=== PATIENT | female | born 1960 | race Caucasian/White ===

== ENCOUNTER 2023-04-15 13:14 | Emergency (ER) | payer OTHER ==
[~2023-04-15] VITALS: Ht 167.6 cm; Wt 73.9 kg
[2023-04-15] MEDS ORDERED: DIPH-1062 PO (13:28)
[2023-04-15] MEDS ORDERED: TRAZ-182 PO (13:28)
[2023-04-15] MEDS ORDERED: ALBU8.5H8 IH (13:28)
[2023-04-15] MEDS ORDERED: ATOR40TA PO (13:28)
[2023-04-15] MEDS ORDERED: CHOL100043 PO (13:28)
[2023-04-15] MEDS ORDERED: SERT50TA12 PO (13:28)
[2023-04-15] MEDS ORDERED: LORA10TA7 PO (13:28)
[2023-04-15] MEDS ORDERED: DIVA-76 PO (13:28)
[2023-04-15] MEDS ORDERED: LISI40TA13 PO (13:28)
[2023-04-15] MEDS ORDERED: AMLO-213 PO (13:28)
[2023-04-15] MEDS ORDERED: CALC500T13 PO (13:28)
[2023-04-15] MEDS ORDERED: PANT40TA2 PO (13:28)
[2023-04-15] MEDS ORDERED: DOCU-141 PO (13:28)
[2023-04-15] MEDS ORDERED: ASPI-1420 PO (13:28)
[2023-04-15] MEDS ORDERED: APIX5TAB PO (13:28)
[2023-04-15] MEDS ORDERED: OLAN10TA3 PO (13:28)
[2023-04-15] MEDS ORDERED: TIZA4TAB5 PO (13:29)
[2023-04-15] MEDS ORDERED: TRAM50TA2 PO (13:29)
[2023-04-15 13:34] LABS: BASOPHILS # (AUTO) 0.1 K/uL (0.0-0.2); BASOPHILS % (AUTO) 0.6 % (0.0-2.0); EOSINOPHILS # (AUTO) 0.5 K/uL (0.0-0.7); HEMATOCRIT 38 % (33-45); HEMOGLOBIN 12.4 g/dL (11.5-14.8); LYMPHOCYTES # (AUTO) 3.1 K/uL (0.8-4.8); LYMPHOCYTES % (AUTO) 31.1 % (20.0-44.0); MEAN CORPUSCULAR HEMOGLOBIN 30 PG (26.0-33.0); MEAN CORPUSCULAR HGB CONC 33 g/dl (31.0-36.0); MEAN CORPUSCULAR VOLUME 91 fL (82-100); MONOCYTES # (AUTO) 0.7 K/uL (0.1-1.30); MONOCYTES % (AUTO) 6.7 % (2.0-12.0); NEUTROPHILS # (AUTO) 5.7 K/uL (1.8-8.9); NEUTROPHILS % (AUTO) 56.6 % (43.0-81.0); PLATELET COUNT (AUTO) 315 K/uL (150-450); RED BLOOD CELL COUNT(AUTO) 4.14 MIL/uL (4.0-5.2); RED CELL DISTRIBUTION WIDTH 13.1 % (11.5-15.0); WHITE BLOOD COUNT (AUTO) 10.1 K/uL (4.3-11.0)
[2023-04-15] MEDS ORDERED: IOHEXOL-350 100 ML VIAL IV ONE (13:35)
[2023-04-15] MEDS ORDERED: IV NS 0.9% 250 ML IV ONE (13:35)
[2023-04-15 13:41] LABS: CALCIUM, SERUM 9.4 mg/dL (8.5-10.1); CARBON DIOXIDE 31 mmol/L (21-32); CHLORIDE 106 mmol/L (98-107); CREATININE 0.7 mg/dL (0.6-1.3); GLUCOSE 105 mg/dL (74-106); POTASSIUM 4.2 mmol/L (3.5-5.1); SODIUM SERUM 141 mmol/L (136-145); UREA NITROGEN, BLOOD 18 mg/dL (7-18)
[2023-04-15 13:43] LABS: INR 1.05 (0.91-1.10); PARTIAL THROMBOPLASTIN TIME 28.1 SEC (24.3-34.3)
[2023-04-15 13:47] LABS: ALANINE AMINOTRANSFERASE 13 U/L (12-78); ALBUMIN 3.1 g/dL (3.4-5.0); ALKALINE PHOSPHATASE 84 U/L (46-116); ASPARTATE AMINOTRANSFERASE 14 U/L (15-37); BILIRUBIN,DIRECT 0.1 mg/dL (0.0-0.2); BILIRUBIN,TOTAL 0.3 mg/dL (0.2-1.0); TOTAL PROTEIN, SERUM 7.3 g/dL (6.4-8.2)
[2023-04-15 15:11] LABS: APPEARANCE,URINE CLEAR (CLEAR); BILIRUBIN,URINE NEGATIVE (NEGATIVE); BLOOD, URINE 1+ Ery/uL (NEGATIVE); COLOR,URINE ORANGE (YELLOW); KETONES,URINE NEGATIVE (NEGATIVE); LEUKOCYTE ESTERASE ,URINE NEGATIVE (NEGATIVE); NITRITE, URINE NEGATIVE (NEGATIVE); PROTEIN,URINE NEGATIVE (NEGATIVE); UGLUCOSE NEGATIVE (NEGATIVE); UROBILINOGEN,URINE 0.2 EU/dL (0.2)
[2023-04-15] MEDS ORDERED: ASPIRIN 300 MG/SUPP.RECT RC ONE ×2 (16:00→16:48)
[2023-04-15 16:17] LABS: ADD URINE CULTURE NO; BACTERIA,URINE Few /HPF (None Seen); RBC,URINE 0-2 /HPF (0-2); SQUAMOUS EPITHELIAL CELL,UR Few /HPF (None Seen); WBC,URINE 0-2 /HPF (0-3)
[2023-04-15 20:29] VITALS: BP 164/70; TEMP 98.2; O2SAT 95
== END 2023-04-15 20:30 | disposition short-term general hospital (02) ==
LOC: ER 13:15
DX: R47.01 Aphasia (principal); R53.1 Weakness; I10 Essential (primary) hypertension; F03.90 Unspecified dementia, unspecified severity, without behavioral disturbance, psychotic disturbance, mood disturbance, and anxiety; F20.9 Schizophrenia, unspecified; Z79.899 Other long term (current) drug therapy; Z20.822 Contact with and (suspected) exposure to COVID-19
CPT/HCPCS: 99291; 70498; 71045; 87426; 51701; 70496; 85025; 80048; 80076; 81001; 36415; 84484 ×2; 85730; 87081; 82962; 70450; 93005; J7050; Q9967; C9803

== ENCOUNTER 2024-10-21 07:35 | Inpatient (IN) | payer MEDICARE, OTHER ==
[~2024-10-21] VITALS: Ht 167.6 cm; Wt 83.9 kg
[2024-10-21] VITALS (43 sets, daily range): BP systolic 67–156; BP diastolic 45–93; TEMP 98.3; O2SAT 93–100
[~2024-10-21 07:35] MED LIST: ALBU8.5H8 IH; AMLO-213 PO; APIX5TAB PO; ASPI-1420 PO; ATOR40TA PO; CALC500T13 PO; CHOL100043 PO; DIPH-1062 PO; DIVA-76 PO; DOCU-141 PO; LISI40TA13 PO; LORA10TA7 PO; OLAN10TA3 PO; PANT40TA2 PO; SERT50TA12 PO; TIZA4TAB5 PO; TRAM50TA2 PO; TRAZ-182 PO
[2024-10-21] MEDS ORDERED: ACETAMINOPHEN 650 MG/SUPP.RECT RC ONE ×2 (07:49)
[2024-10-21 07:57] LABS: BASOPHILS # (AUTO) 0.1 K/uL (0.0-0.2); BASOPHILS % (AUTO) 0.6 % (0.0-2.0); EOSINOPHILS # (AUTO) 0.1 K/uL (0.0-0.7); EOSINOPHILS % (AUTO) 0.7 % (0.0-6.0); HEMATOCRIT 39 % (33-45); HEMOGLOBIN 12.6 g/dL (11.5-14.8); LYMPHOCYTES # (AUTO) 3.6 K/uL (0.8-4.8); LYMPHOCYTES % (AUTO) 29.4 % (20.0-44.0); MEAN CORPUSCULAR HEMOGLOBIN 29 PG (26.0-33.0); MEAN CORPUSCULAR HGB CONC 32 g/dl (31.0-36.0); MEAN CORPUSCULAR VOLUME 90 fL (82-100); MONOCYTES # (AUTO) 0.3 K/uL (0.1-1.30); MONOCYTES % (AUTO) 2.1 % (2.0-12.0); NEUTROPHILS # (AUTO) 8.3 K/uL (1.8-8.9); NEUTROPHILS % (AUTO) 67.2 % (43.0-81.0); PLATELET COUNT (AUTO) 302 K/uL (150-450); RED BLOOD CELL COUNT(AUTO) 4.34 MIL/uL (4.0-5.2); WHITE BLOOD COUNT (AUTO) 12.3 K/uL (4.3-11.0)
[2024-10-21 08:04] LABS: CALCIUM, SERUM 8.8 mg/dL (8.5-10.1); CARBON DIOXIDE 26 mmol/L (21-32); CHLORIDE 108 mmol/L (98-107); CREATININE 1.3 mg/dL (0.6-1.3); GLUCOSE 257 mg/dL (74-106); POTASSIUM 4.7 mmol/L (3.5-5.1); SODIUM SERUM 141 mmol/L (136-145); UREA NITROGEN, BLOOD 25 mg/dL (7-18)
[2024-10-21 08:12] LABS: LACTIC ACID 1.9 mmol/L (0.4-2.0)
[2024-10-21 08:21] LABS: ALANINE AMINOTRANSFERASE 11 U/L (12-78); ALBUMIN 2.9 g/dL (3.4-5.0); ALKALINE PHOSPHATASE 57 U/L (46-116); ASPARTATE AMINOTRANSFERASE 20 U/L (15-37); BILIRUBIN,DIRECT 0.1 mg/dL (0.0-0.2); BILIRUBIN,TOTAL 0.3 mg/dL (0.2-1.0)
[2024-10-21] MEDS: ACETAMINOPHEN 650 MG/SUPP.RECT RC ONE ×2 (08:21→08:38)
[2024-10-21] MEDS: NOREPINEPHRINE 8 MG in IV D5W 242 ML IV PRN ×2 (08:30→13:57)
[2024-10-21 08:33] LABS: INR 1.13 (0.91-1.10); PARTIAL THROMBOPLASTIN TIME 27.1 SEC (24.3-34.3); PROTHROMBIN TIME 11.9 SECS (9.2-11.1)
[2024-10-21] MEDS: IV NS 0.9% 1,000 ML BAG IV ONE (08:42)
[2024-10-21] MEDS: AZITHROMYCIN 500 MG in IV D5W 250 ML IV ONE (08:43)
[2024-10-21] MEDS: VANCOMYCIN 1 GM in IV D5W 250 ML IV ONE (08:43)
[2024-10-21] MEDS: PIPERACILLIN /TAZOBACTAM 3.375 G in IV D5W 50 ML IV ONE (08:44)
[2024-10-21] MEDS ORDERED: [UNRECOGNIZED DRUG - OTHER] PO (09:10)
[2024-10-21] MEDS ORDERED: MAGN400O6 PO (09:10)
[2024-10-21] MEDS ORDERED: FLUT1BLS IH (09:10)
[2024-10-21] MEDS ORDERED: SENN-261 PO (09:10)
[2024-10-21] MEDS ORDERED: ACET-868 PO (09:10)
[2024-10-21] MEDS ORDERED: IPRA3AMP22 IH ×2 (09:10)
[2024-10-21] MEDS ORDERED: LOPE2TAB25 PO (09:10)
[2024-10-21] MEDS ORDERED: BISA10SU11 RC (09:10)
[2024-10-21] MEDS ORDERED: CALC-494 PO (09:10)
[2024-10-21] MEDS ORDERED: ONDA4TAB5 PO (09:10)
[2024-10-21] MEDS ORDERED: AMLO5TAB4 PO (09:10)
[2024-10-21 09:12] LABS: APPEARANCE,URINE CLEAR (CLEAR); BILIRUBIN,URINE NEGATIVE (NEGATIVE); BLOOD, URINE 2+ Ery/uL (NEGATIVE); COLOR,URINE YELLOW (YELLOW); KETONES,URINE NEGATIVE (NEGATIVE); LEUKOCYTE ESTERASE ,URINE NEGATIVE (NEGATIVE); NITRITE, URINE NEGATIVE (NEGATIVE); PROTEIN,URINE 2+ mg/dl (NEGATIVE); UGLUCOSE NEGATIVE (NEGATIVE); UROBILINOGEN,URINE 0.2 EU/dL (0.2)
[2024-10-21 09:21] LABS: ABG BASE EXCESS -1.6 mmol/L (-2.0-3.0); ABG OXYGEN SATURATION 98.9 % (94.0-98.0); ABG PCO2 39.5 mmHg (32.0-45.0); ABG PH 7.387 (7.350-7.450); ABG PO2 279.9 mmHg (83.0-108.0); COHb 0.3 % (0.5-1.5); MetHb 0.5 % (0.0-1.5); O2Hb 98.1 % (94.0-97.0); SITE, ABG RIGHT RADIAL
[2024-10-21] MEDS ORDERED: PROPOFOL 100 ML ONE (09:36)
[2024-10-21 09:54] LABS: ADD URINE CULTURE NO; BACTERIA,URINE 1+ /HPF (None Seen); WBC,URINE 0-2 /HPF (0-3)
[2024-10-21 10:11] LABS: ABG BASE EXCESS -7.2 mmol/L (-2.0-3.0); ABG OXYGEN SATURATION 98.7 % (94.0-98.0); ABG PCO2 24.2 mmHg (32.0-45.0); ABG PH 7.428 (7.350-7.450); ABG PO2 228.3 mmHg (83.0-108.0); ABG TOTAL HEMOGLOBIN 11.3 G/dL (12.0-16.0); COHb 0.3 % (0.5-1.5); MetHb 0.3 % (0.0-1.5); O2Hb 98.1 % (94.0-97.0); PEEP,BG 5 cm H2O; SITE, ABG RIGHT RADIAL; VT, ABG 450 mL
[2024-10-21] MEDS: PROPOFOL 100 ML IV PRN ×2 (10:14→14:48)
[2024-10-21] MEDS: ASPIRIN 300 MG/SUPP.RECT RC ONE (10:30)
[2024-10-21] MEDS ORDERED: ASPIRIN 300 MG/SUPP.RECT RC ONE (11:26)
[2024-10-21] MEDS ORDERED: Z GUARD REMEDY 4 OZ OINT TP PRN (12:00)
[2024-10-21] MEDS ORDERED: ONDANSETRON HCL/PF 4 MG/2 ML VIAL IVP PRN (12:00)
[2024-10-21] MEDS ORDERED: MAG HYDROX/AL HYDROX/SIMETH 30 ML UDC PO PRN (12:00)
[2024-10-21] MEDS: ENOXAPARIN SODIUM 40 MG/0.4 ML DISP.SYRIN SQ SCH (14:45)
[2024-10-21] MEDS: PIPERACILLIN /TAZOBACTAM 3.375 G in IV D5W 50 ML IV SCH (15:26)
[2024-10-21] MEDS ORDERED: ETOMIDATE 2 MG/ML VIAL IV ONE (17:44)
[2024-10-21] MEDS: IV NS 0.9% 1,000 ML IV PRN (19:43)
[2024-10-21] MEDS: VANCOMYCIN 750 MG in IV D5W 250 ML IV SCH (20:37)
[2024-10-22] VITALS (48 sets, daily range): BP systolic 75–141; BP diastolic 45–95; TEMP 97–99; O2SAT 93–100
[2024-10-22 05:11] LABS: BASOPHILS % (AUTO) 0.3 % (0.0-2.0); EOSINOPHILS # (AUTO) 0.1 K/uL (0.0-0.7); EOSINOPHILS % (AUTO) 0.9 % (0.0-6.0); HEMATOCRIT 31 % (33-45); HEMOGLOBIN 10.2 g/dL (11.5-14.8); LYMPHOCYTES # (AUTO) 3.3 K/uL (0.8-4.8); LYMPHOCYTES % (AUTO) 34.6 % (20.0-44.0); MEAN CORPUSCULAR HEMOGLOBIN 30 PG (26.0-33.0); MEAN CORPUSCULAR HGB CONC 33 g/dl (31.0-36.0); MEAN CORPUSCULAR VOLUME 90 fL (82-100); MONOCYTES # (AUTO) 1.2 K/uL (0.1-1.30); MONOCYTES % (AUTO) 12.4 % (2.0-12.0); NEUTROPHILS # (AUTO) 4.9 K/uL (1.8-8.9); NEUTROPHILS % (AUTO) 51.8 % (43.0-81.0); PLATELET COUNT (AUTO) 155 K/uL (150-450); RED BLOOD CELL COUNT(AUTO) 3.46 MIL/uL (4.0-5.2); RED CELL DISTRIBUTION WIDTH 15.2 % (11.5-15.0); WHITE BLOOD COUNT (AUTO) 9.5 K/uL (4.3-11.0)
[2024-10-22 05:33] LABS: CALCIUM, SERUM 8.1 mg/dL (8.5-10.1); CREATININE 0.7 mg/dL (0.6-1.3); MAGNESIUM 1.6 mg/dL (1.8-2.4); PHOSPHORUS 2.4 mg/dL (2.5-4.9)
[2024-10-22 05:36] LABS: POTASSIUM 2.8 mmol/L (3.5-5.1)
[2024-10-22] MEDS ORDERED: POTASSIUM CHLORIDE 10 MEQ/50 ML PREMIXED IVPB FOR PERIPHERAL LINE IV ONE (07:30)
[2024-10-22] MEDS: PANTOPRAZOLE 40 MG VIAL IV SCH (08:59)
[2024-10-22] MEDS: POTASSIUM CL. PREMIX PERIPHER. 50 ML IV SCH ×2 (09:00→13:27)
[2024-10-22] MEDS ORDERED: Magnesium 1GM/D5W 100ML PREMIX 100 ML IV SCH (11:30)
[2024-10-22] MEDS: IV D5/0.45 NACL 1,000 ML IV SCH (12:02)
[2024-10-22] MEDS: Magnesium 1GM/D5W 100ML PREMIX 100 ML IV SCH (12:21)
[2024-10-22] MEDS: PIPERACILLIN /TAZOBACTAM 3.375 G in IV D5W 100 ML IV SCH (16:25)
[2024-10-22] MEDS: POTASSIUM PHOSPHATE MM 15 MMOL in IV NS 0.9% 250 ML IV SCH (16:53)
[2024-10-22] MEDS: IV NS 0.9% 250 ML IV PRN (20:17)
[2024-10-23] VITALS (75 sets, daily range): BP systolic 76–179; BP diastolic 47–90; TEMP 98.5–98.8; O2SAT 93–100
[2024-10-23 05:15] LABS: BASOPHILS % (AUTO) 0.4 % (0.0-2.0); EOSINOPHILS # (AUTO) 0.4 K/uL (0.0-0.7); EOSINOPHILS % (AUTO) 3.7 % (0.0-6.0); HEMATOCRIT 30 % (33-45); HEMOGLOBIN 10.2 g/dL (11.5-14.8); LYMPHOCYTES # (AUTO) 2.6 K/uL (0.8-4.8); LYMPHOCYTES % (AUTO) 24.7 % (20.0-44.0); MEAN CORPUSCULAR HEMOGLOBIN 30 PG (26.0-33.0); MEAN CORPUSCULAR HGB CONC 33 g/dl (31.0-36.0); MEAN CORPUSCULAR VOLUME 89 fL (82-100); MONOCYTES % (AUTO) 9.7 % (2.0-12.0); NEUTROPHILS # (AUTO) 6.4 K/uL (1.8-8.9); NEUTROPHILS % (AUTO) 61.5 % (43.0-81.0); PLATELET COUNT (AUTO) 164 K/uL (150-450); RED BLOOD CELL COUNT(AUTO) 3.42 MIL/uL (4.0-5.2); RED CELL DISTRIBUTION WIDTH 14.8 % (11.5-15.0); WHITE BLOOD COUNT (AUTO) 10.4 K/uL (4.3-11.0)
[2024-10-23 05:20] LABS: CREATININE 0.8 mg/dL (0.6-1.3); POTASSIUM 3.7 mmol/L (3.5-5.1)
[2024-10-24] VITALS (93 sets, daily range): BP systolic 79–169; BP diastolic 46–101; TEMP 97–98.8; O2SAT 93–100
[2024-10-24 04:48] LABS: BASOPHILS # (AUTO) 0.1 K/uL (0.0-0.2); BASOPHILS % (AUTO) 0.7 % (0.0-2.0); EOSINOPHILS # (AUTO) 0.7 K/uL (0.0-0.7); EOSINOPHILS % (AUTO) 8.3 % (0.0-6.0); HEMATOCRIT 30 % (33-45); LYMPHOCYTES # (AUTO) 2.1 K/uL (0.8-4.8); LYMPHOCYTES % (AUTO) 23.4 % (20.0-44.0); MEAN CORPUSCULAR HEMOGLOBIN 30 PG (26.0-33.0); MEAN CORPUSCULAR HGB CONC 34 g/dl (31.0-36.0); MEAN CORPUSCULAR VOLUME 88 fL (82-100); MONOCYTES # (AUTO) 0.8 K/uL (0.1-1.30); MONOCYTES % (AUTO) 9.4 % (2.0-12.0); NEUTROPHILS # (AUTO) 5.2 K/uL (1.8-8.9); NEUTROPHILS % (AUTO) 58.2 % (43.0-81.0); PLATELET COUNT (AUTO) 189 K/uL (150-450); RED BLOOD CELL COUNT(AUTO) 3.34 MIL/uL (4.0-5.2); RED CELL DISTRIBUTION WIDTH 14.8 % (11.5-15.0); WHITE BLOOD COUNT (AUTO) 8.9 K/uL (4.3-11.0)
[2024-10-24 05:09] LABS: CALCIUM, SERUM 8.6 mg/dL (8.5-10.1); CREATININE 0.8 mg/dL (0.6-1.3); POTASSIUM 3.2 mmol/L (3.5-5.1)
[2024-10-24 05:21] LABS: MAGNESIUM 1.9 mg/dL (1.8-2.4); PHOSPHORUS 4.1 mg/dL (2.5-4.9)
[2024-10-24] MEDS: METOCLOPRAMIDE HCL 10 MG/2 ML VIAL IV SCH (10:15)
[2024-10-24] MEDS: POTASSIUM CL. PREMIX PERIPHER. 50 ML IV SCH (10:24)
[2024-10-24] MEDS: PANTOPRAZOLE 40 MG VIAL IV SCH (21:13)
[2024-10-24] MEDS: IV D5/0.45 NACL 1,000 ML IV PRN (22:25)
[2024-10-25] VITALS (54 sets, daily range): BP systolic 74–165; BP diastolic 49–107; TEMP 98.7–99.9; O2SAT 92–100
[2024-10-25 04:53] LABS: CALCIUM, SERUM 8.4 mg/dL (8.5-10.1); POTASSIUM 2.9 mmol/L (3.5-5.1)
[2024-10-25] MEDS: POTASSIUM CL. PREMIX PERIPHER. 50 ML IV SCH (08:32)
[2024-10-25 13:08] LABS: ABG BASE EXCESS -2.1 mmol/L (-2.0-3.0); ABG OXYGEN SATURATION 94.5 % (94.0-98.0); ABG PCO2 33.7 mmHg (32.0-45.0); ABG PH 7.427 (7.350-7.450); ABG TOTAL HEMOGLOBIN 11.1 G/dL (12.0-16.0); COHb 0.3 % (0.5-1.5); MetHb 0.3 % (0.0-1.5); O2Hb 93.9 % (94.0-97.0); PEEP,BG 5 cm H2O; SITE, ABG RIGHT RADIAL; VT, ABG 450 mL
[2024-10-25 19:05] LABS: CREATININE, URINE 40.1 MG/DL (30.0-125.0); URINE TOTAL PROTEIN 17.5 mg/dL (0-11.9)
[2024-10-26] VITALS (63 sets, daily range): BP systolic 80–189; BP diastolic 52–125; TEMP 98.5–100; O2SAT 88–100
[2024-10-26 04:53] LABS: BASOPHILS # (AUTO) 0.1 K/uL (0.0-0.2); BASOPHILS % (AUTO) 0.9 % (0.0-2.0); EOSINOPHILS # (AUTO) 0.3 K/uL (0.0-0.7); HEMATOCRIT 30 % (33-45); HEMOGLOBIN 9.9 g/dL (11.5-14.8); LYMPHOCYTES # (AUTO) 1.6 K/uL (0.8-4.8); LYMPHOCYTES % (AUTO) 20.1 % (20.0-44.0); MEAN CORPUSCULAR HEMOGLOBIN 29 PG (26.0-33.0); MEAN CORPUSCULAR HGB CONC 33 g/dl (31.0-36.0); MEAN CORPUSCULAR VOLUME 90 fL (82-100); MONOCYTES % (AUTO) 12.4 % (2.0-12.0); NEUTROPHILS % (AUTO) 62.6 % (43.0-81.0); PLATELET COUNT (AUTO) 245 K/uL (150-450); RED BLOOD CELL COUNT(AUTO) 3.37 MIL/uL (4.0-5.2); RED CELL DISTRIBUTION WIDTH 14.5 % (11.5-15.0)
[2024-10-26 05:10] LABS: CREATININE 1.1 mg/dL (0.6-1.3); MAGNESIUM 1.7 mg/dL (1.8-2.4); PHOSPHORUS 3.7 mg/dL (2.5-4.9)
[2024-10-26] MEDS ORDERED: DC PROPOFOL WHEN EXTUBATED XX PRN (09:00)
[2024-10-26] MEDS ORDERED: VANCOMYCIN 750 MG in IV D5W 250 ML IV SCH (09:00)
[2024-10-26] MEDS: Magnesium 1GM/D5W 100ML PREMIX 100 ML IV SCH (10:20)
[2024-10-26] MEDS: POTASSIUM CL. PREMIX PERIPHER. 50 ML IV SCH (10:21)
[2024-10-26] MEDS: HYDROCORTISONE SOD SUCCINATE 100 MG/2 ML VIAL IV SCH (10:27)
[2024-10-26 10:50] LABS: ABG OXYGEN SATURATION 94.2 % (94.0-98.0); ABG PCO2 33.2 mmHg (32.0-45.0); ABG PH 7.433 (7.350-7.450); ABG PO2 77.4 mmHg (83.0-108.0); ABG TOTAL HEMOGLOBIN 10.9 G/dL (12.0-16.0); O2Hb 94.2 % (94.0-97.0); PEEP,BG 5 cm H2O; SITE, ABG RIGHT RADIAL; VT, ABG 450 mL
[2024-10-27] VITALS (36 sets, daily range): BP systolic 94–166; BP diastolic 57–94; TEMP 98–98.7; O2SAT 86–99
[2024-10-27 04:41] LABS: BASOPHILS % (AUTO) 0.2 % (0.0-2.0); HEMATOCRIT 31 % (33-45); HEMOGLOBIN 10.2 g/dL (11.5-14.8); LYMPHOCYTES # (AUTO) 1.2 K/uL (0.8-4.8); LYMPHOCYTES % (AUTO) 15.6 % (20.0-44.0); MEAN CORPUSCULAR HEMOGLOBIN 30 PG (26.0-33.0); MEAN CORPUSCULAR HGB CONC 33 g/dl (31.0-36.0); MEAN CORPUSCULAR VOLUME 90 fL (82-100); MONOCYTES # (AUTO) 0.3 K/uL (0.1-1.30); MONOCYTES % (AUTO) 3.5 % (2.0-12.0); NEUTROPHILS # (AUTO) 6.1 K/uL (1.8-8.9); NEUTROPHILS % (AUTO) 80.7 % (43.0-81.0); PLATELET COUNT (AUTO) 353 K/uL (150-450); RED BLOOD CELL COUNT(AUTO) 3.43 MIL/uL (4.0-5.2); RED CELL DISTRIBUTION WIDTH 14.4 % (11.5-15.0); WHITE BLOOD COUNT (AUTO) 7.6 K/uL (4.3-11.0)
[2024-10-27 04:53] LABS: CALCIUM, SERUM 9.3 mg/dL (8.5-10.1); MAGNESIUM 2.4 mg/dL (1.8-2.4); PHOSPHORUS 3.1 mg/dL (2.5-4.9); POTASSIUM 3.9 mmol/L (3.5-5.1)
[2024-10-28] VITALS: BP 148/84; TEMP 98.8; O2SAT 98
[2024-10-28 04:00] VITALS: BP 155/79; TEMP 97.7; O2SAT 98
[2024-10-28 07:10] LABS: CALCIUM, SERUM 8.7 mg/dL (8.5-10.1); POTASSIUM 3.4 mmol/L (3.5-5.1)
[2024-10-28 08:00] VITALS: BP 156/78; TEMP 97.5; O2SAT 99
[2024-10-28] MEDS: POTASSIUM CL. PREMIX PERIPHER. 50 ML IV SCH (10:57)
[2024-10-28 12:00] VITALS: BP 160/75; TEMP 98.4; O2SAT 97
[2024-10-28 16:00] VITALS: BP 133/70; TEMP 98.2; O2SAT 98
[2024-10-28 20:00] VITALS: BP 152/76; TEMP 98.1; O2SAT 96
[2024-10-29] VITALS: BP 163/76; TEMP 98.1; O2SAT 95
[2024-10-29 04:00] VITALS: BP 184/88; TEMP 98.1; O2SAT 95
[2024-10-29 06:15] LABS: BASOPHILS % (AUTO) 0.1 % (0.0-2.0); HEMATOCRIT 28 % (33-45); HEMOGLOBIN 9.8 g/dL (11.5-14.8); LYMPHOCYTES # (AUTO) 1.3 K/uL (0.8-4.8); MEAN CORPUSCULAR HEMOGLOBIN 31 PG (26.0-33.0); MEAN CORPUSCULAR HGB CONC 35 g/dl (31.0-36.0); MEAN CORPUSCULAR VOLUME 88 fL (82-100); MONOCYTES # (AUTO) 0.6 K/uL (0.1-1.30); MONOCYTES % (AUTO) 7.6 % (2.0-12.0); NEUTROPHILS # (AUTO) 6.1 K/uL (1.8-8.9); NEUTROPHILS % (AUTO) 76.3 % (43.0-81.0); PLATELET COUNT (AUTO) 434 K/uL (150-450); RED BLOOD CELL COUNT(AUTO) 3.15 MIL/uL (4.0-5.2); RED CELL DISTRIBUTION WIDTH 14.6 % (11.5-15.0)
[2024-10-29] MEDS: hydrALAZINE HCL IV 20 MG VIAL IV PRN (06:31)
[2024-10-29 06:59] LABS: CREATININE 0.8 mg/dL (0.6-1.3); MAGNESIUM 1.9 mg/dL (1.8-2.4); PHOSPHORUS 2.3 mg/dL (2.5-4.9); POTASSIUM 2.9 mmol/L (3.5-5.1)
[2024-10-29 08:00] VITALS: BP 163/67; TEMP 98.1; TEMP 98.6; O2SAT 95
[2024-10-29] MEDS: POTASSIUM CL. PREMIX PERIPHER. 50 ML IV SCH (11:40)
[2024-10-29 16:00] VITALS: BP 157/82; TEMP 98.4; O2SAT 94
[2024-10-29] MEDS: Sodium Phosphate 15 MMOL in IV NS 0.9% 245 ML IV ONE (18:22)
[2024-10-29 20:00] VITALS: BP 154/80; TEMP 98.1; O2SAT 99
[2024-10-30] VITALS: BP 148/81; TEMP 98.6; O2SAT 100
[2024-10-30 04:00] VITALS: BP 154/85; TEMP 98.4; O2SAT 98
[2024-10-30 05:49] LABS: BASOPHILS % (AUTO) 0.2 % (0.0-2.0); HEMATOCRIT 30 % (33-45); HEMOGLOBIN 10.4 g/dL (11.5-14.8); LYMPHOCYTES # (AUTO) 1.5 K/uL (0.8-4.8); LYMPHOCYTES % (AUTO) 19.1 % (20.0-44.0); MEAN CORPUSCULAR HEMOGLOBIN 31 PG (26.0-33.0); MEAN CORPUSCULAR HGB CONC 34 g/dl (31.0-36.0); MEAN CORPUSCULAR VOLUME 89 fL (82-100); MONOCYTES # (AUTO) 0.7 K/uL (0.1-1.30); MONOCYTES % (AUTO) 9.3 % (2.0-12.0); NEUTROPHILS # (AUTO) 5.5 K/uL (1.8-8.9); NEUTROPHILS % (AUTO) 71.4 % (43.0-81.0); PLATELET COUNT (AUTO) 494 K/uL (150-450); RED CELL DISTRIBUTION WIDTH 14.5 % (11.5-15.0); WHITE BLOOD COUNT (AUTO) 7.8 K/uL (4.3-11.0)
[2024-10-30 06:12] LABS: CALCIUM, SERUM 8.8 mg/dL (8.5-10.1); CREATININE 0.8 mg/dL (0.6-1.3); MAGNESIUM 1.7 mg/dL (1.8-2.4); POTASSIUM 3.1 mmol/L (3.5-5.1)
[2024-10-30 08:00] VITALS: BP 157/73; TEMP 98.1; O2SAT 98
[2024-10-30] MEDS: Magnesium 1GM/D5W 100ML PREMIX 100 ML IV SCH (11:03)
[2024-10-30] MEDS: POTASSIUM CL. PREMIX PERIPHER. 50 ML IV SCH (11:03)
[2024-10-30 12:00] VITALS: BP 156/74; TEMP 98.6; O2SAT 98
[2024-10-30] MEDS ORDERED: PPN ADDITIVES 1 EA in AMINO ACIDS 4.25 %/DEXTROSE 5% 1,000 ML IV PRN (13:30)
[2024-10-30] MEDS ORDERED: DEXTROSE 50%-WATER 50 ML DISP.SYRIN IV PRN (14:00)
[2024-10-30 16:00] VITALS: BP 134/61; TEMP 98.6; O2SAT 98
[2024-10-30] MEDS: TPN BAG 1 IV SCH (16:17)
[2024-10-30] MEDS: INSULIN ASPART/LISPRO 100 UNIT/ML CARTRIDGE SQ PRN (17:24)
[2024-10-30] MEDS: BLOOD SUGAR DIAGNOSTIC 1 EACH STRIP IN SCH (17:24)
[2024-10-30 20:00] VITALS: BP 177/92; TEMP 98.4; O2SAT 96
[2024-10-31] VITALS: BP 150/94; TEMP 98.2; O2SAT 100
[2024-10-31 04:00] VITALS: BP 157/79; TEMP 98.4; O2SAT 100
[2024-10-31 06:48] LABS: BASOPHILS % (AUTO) 0.1 % (0.0-2.0); HEMATOCRIT 33 % (33-45); HEMOGLOBIN 11.1 g/dL (11.5-14.8); LYMPHOCYTES # (AUTO) 1.5 K/uL (0.8-4.8); LYMPHOCYTES % (AUTO) 16.8 % (20.0-44.0); MEAN CORPUSCULAR HEMOGLOBIN 30 PG (26.0-33.0); MEAN CORPUSCULAR HGB CONC 34 g/dl (31.0-36.0); MEAN CORPUSCULAR VOLUME 89 fL (82-100); MONOCYTES # (AUTO) 0.6 K/uL (0.1-1.30); MONOCYTES % (AUTO) 7.1 % (2.0-12.0); NEUTROPHILS # (AUTO) 6.9 K/uL (1.8-8.9); PLATELET COUNT (AUTO) 552 K/uL (150-450); RED BLOOD CELL COUNT(AUTO) 3.72 MIL/uL (4.0-5.2); RED CELL DISTRIBUTION WIDTH 14.5 % (11.5-15.0); WHITE BLOOD COUNT (AUTO) 9.1 K/uL (4.3-11.0)
[2024-10-31 07:04] LABS: CALCIUM, SERUM 8.7 mg/dL (8.5-10.1); CREATININE 0.7 mg/dL (0.6-1.3); MAGNESIUM 2.7 mg/dL (1.8-2.4); PHOSPHORUS 2.5 mg/dL (2.5-4.9); POTASSIUM 3.3 mmol/L (3.5-5.1)
[2024-10-31 08:00] VITALS: BP 160/75; TEMP 98.6; O2SAT 100
[2024-10-31] MEDS: POTASSIUM CL. PREMIX PERIPHER. 50 ML IV SCH (11:06)
[2024-10-31] MEDS: TPN BAG 2 IV SCH (16:35)
[2024-10-31 20:00] VITALS: BP 140/90; TEMP 99; O2SAT 100
[2024-11-01 04:12] VITALS: BP 156/77; TEMP 99.5; O2SAT 100
[2024-11-01 07:26] LABS: BASOPHILS % (AUTO) 0.1 % (0.0-2.0); HEMATOCRIT 32 % (33-45); HEMOGLOBIN 10.7 g/dL (11.5-14.8); LYMPHOCYTES # (AUTO) 1.2 K/uL (0.8-4.8); LYMPHOCYTES % (AUTO) 14.3 % (20.0-44.0); MEAN CORPUSCULAR HEMOGLOBIN 29 PG (26.0-33.0); MEAN CORPUSCULAR HGB CONC 33 g/dl (31.0-36.0); MEAN CORPUSCULAR VOLUME 88 fL (82-100); MONOCYTES # (AUTO) 0.7 K/uL (0.1-1.30); MONOCYTES % (AUTO) 7.9 % (2.0-12.0); NEUTROPHILS # (AUTO) 6.4 K/uL (1.8-8.9); NEUTROPHILS % (AUTO) 77.7 % (43.0-81.0); PLATELET COUNT (AUTO) 563 K/uL (150-450); RED BLOOD CELL COUNT(AUTO) 3.62 MIL/uL (4.0-5.2); RED CELL DISTRIBUTION WIDTH 14.3 % (11.5-15.0); WHITE BLOOD COUNT (AUTO) 8.3 K/uL (4.3-11.0)
[2024-11-01 07:38] LABS: CALCIUM, SERUM 8.8 mg/dL (8.5-10.1); CREATININE 0.7 mg/dL (0.6-1.3); PHOSPHORUS 2.2 mg/dL (2.5-4.9); POTASSIUM 2.9 mmol/L (3.5-5.1)
[2024-11-01 08:00] VITALS: BP 162/84; TEMP 98.2; O2SAT 94
[2024-11-01 10:50] LABS: ABG BASE EXCESS 1.2 mmol/L (-2.0-3.0); ABG OXYGEN SATURATION 96.8 % (94.0-98.0); ABG PCO2 33.3 mmHg (32.0-45.0); ABG PO2 90.7 mmHg (83.0-108.0); ABG TOTAL HEMOGLOBIN 11.8 G/dL (12.0-16.0); COHb 0.3 % (0.5-1.5); MetHb 0.1 % (0.0-1.5); O2Hb 96.4 % (94.0-97.0); SITE, ABG RIGHT RADIAL
[2024-11-01] MEDS: POTASSIUM PHOSPHATE MM 15 MMOL in IV NS 0.9% 250 ML IV SCH (11:04)
[2024-11-01] MEDS ORDERED: TPN IV SCH (13:15)
[2024-11-01] MEDS ORDERED: WEAN OFF TPN/PPN XX PRN (13:30)
[2024-11-01] MEDS ORDERED: WEAN OFF TPN/PPN IV PRN (13:30)
[2024-11-01] MEDS: POTASSIUM CL. PREMIX PERIPHER. 50 ML IV SCH (14:00)
[2024-11-01] MEDS: AMLODIPINE BESYLATE 5 MG TABLET PO SCH (14:01)
[2024-11-01] MEDS: ACETAMINOPHEN 325 MG TABLET PO PRN (15:15)
[2024-11-01] MEDS: K PHOS NEUTRAL 250 MG TABLET PO ONE (16:15)
[2024-11-01 20:00] VITALS: BP 124/89; TEMP 99.5; O2SAT 96
[2024-11-02] VITALS: BP 152/86; TEMP 99.5; O2SAT 95
[2024-11-02 07:22] LABS: BASOPHILS % (AUTO) 0.1 % (0.0-2.0); HEMATOCRIT 35 % (33-45); HEMOGLOBIN 11.7 g/dL (11.5-14.8); LYMPHOCYTES # (AUTO) 1.6 K/uL (0.8-4.8); LYMPHOCYTES % (AUTO) 14.2 % (20.0-44.0); MEAN CORPUSCULAR HEMOGLOBIN 30 PG (26.0-33.0); MEAN CORPUSCULAR HGB CONC 34 g/dl (31.0-36.0); MEAN CORPUSCULAR VOLUME 88 fL (82-100); MONOCYTES # (AUTO) 0.6 K/uL (0.1-1.30); MONOCYTES % (AUTO) 5.1 % (2.0-12.0); NEUTROPHILS # (AUTO) 8.9 K/uL (1.8-8.9); NEUTROPHILS % (AUTO) 80.6 % (43.0-81.0); PLATELET COUNT (AUTO) 566 K/uL (150-450); RED BLOOD CELL COUNT(AUTO) 3.94 MIL/uL (4.0-5.2); RED CELL DISTRIBUTION WIDTH 15.1 % (11.5-15.0); WHITE BLOOD COUNT (AUTO) 11.1 K/uL (4.3-11.0)
[2024-11-02 07:56] LABS: CALCIUM, SERUM 9.2 mg/dL (8.5-10.1); CREATININE 0.8 mg/dL (0.6-1.3); MAGNESIUM 2.1 mg/dL (1.8-2.4); PHOSPHORUS 3.5 mg/dL (2.5-4.9); POTASSIUM 3.7 mmol/L (3.5-5.1)
[2024-11-02 08:00] VITALS: BP 147/70; TEMP 98.2; O2SAT 94
[2024-11-02] MEDS: PANTOPRAZOLE 40 MG TABLET.DR PO SCH (09:26)
[2024-11-02] MEDS ORDERED: TPN BAG 4 IV SCH (09:30)
[2024-11-02 20:00] VITALS: BP 134/74; TEMP 98
[2024-11-02] MEDS ORDERED: HYDROCORTISONE SOD SUCCINATE 100 MG/2 ML VIAL IV SCH (21:00)
[2024-11-03 04:00] VITALS: BP 144/85; TEMP 98.4
[2024-11-03 06:08] LABS: BASOPHILS % (AUTO) 0.4 % (0.0-2.0); EOSINOPHILS # (AUTO) 0.5 K/uL (0.0-0.7); EOSINOPHILS % (AUTO) 4.6 % (0.0-6.0); HEMATOCRIT 34 % (33-45); HEMOGLOBIN 11.2 g/dL (11.5-14.8); LYMPHOCYTES # (AUTO) 3.6 K/uL (0.8-4.8); LYMPHOCYTES % (AUTO) 29.8 % (20.0-44.0); MEAN CORPUSCULAR HEMOGLOBIN 29 PG (26.0-33.0); MEAN CORPUSCULAR HGB CONC 33 g/dl (31.0-36.0); MEAN CORPUSCULAR VOLUME 89 fL (82-100); MONOCYTES # (AUTO) 0.8 K/uL (0.1-1.30); MONOCYTES % (AUTO) 6.5 % (2.0-12.0); NEUTROPHILS % (AUTO) 58.7 % (43.0-81.0); PLATELET COUNT (AUTO) 466 K/uL (150-450); RED BLOOD CELL COUNT(AUTO) 3.81 MIL/uL (4.0-5.2); RED CELL DISTRIBUTION WIDTH 15.3 % (11.5-15.0)
[2024-11-03 07:02] LABS: CALCIUM, SERUM 9.1 mg/dL (8.5-10.1); CREATININE 0.9 mg/dL (0.6-1.3); MAGNESIUM 1.9 mg/dL (1.8-2.4); PHOSPHORUS 3.2 mg/dL (2.5-4.9); POTASSIUM 2.9 mmol/L (3.5-5.1)
[2024-11-03 08:00] VITALS: BP 128/70; TEMP 98
[2024-11-03 09:31] VITALS: BP 128/70
[2024-11-03] MEDS: HYDROCORTISONE SOD SUCCINATE 100 MG/2 ML VIAL IV SCH (09:31)
[2024-11-03 11:26] LABS: ABG OXYGEN SATURATION 95.8 % (94.0-98.0); ABG PCO2 34.3 mmHg (32.0-45.0); ABG PH 7.497 (7.350-7.450); ABG PO2 83.2 mmHg (83.0-108.0); ABG TOTAL HEMOGLOBIN 11.6 G/dL (12.0-16.0); COHb 0.2 % (0.5-1.5); MetHb 0.3 % (0.0-1.5); O2Hb 95.3 % (94.0-97.0); SITE, ABG RIGHT RADIAL
[2024-11-03] MEDS: POTASSIUM CHLORIDE 20 MEQ TAB.PRT.SR PO SCH (11:40)
== END 2024-11-03 17:20 | DRG 207 ==
LOC: ER 07:46 → ICU 12:06 → TELE-TD 10-27 18:33 → TELE1 10-28 11:07 → MEDSG1 10-31 10:22
PROVIDERS: ATTEND Nurse Practitioner Family
PROC: 5A1955Z Respiratory Ventilation, Greater than 96 Consecutive Hours (ICD-10-PCS; principal; 2024-10-21)
PROC: 0BH17EZ Insertion of Endotracheal Airway into Trachea, Via Natural or Artificial Opening (ICD-10-PCS; 2024-10-21)
PROC: 02HV33Z Insertion of Infusion Device into Superior Vena Cava, Percutaneous Approach (ICD-10-PCS; 2024-10-21)
PROC: B548ZZA Ultrasonography of Superior Vena Cava, Guidance (ICD-10-PCS; 2024-10-21)
DX: J15.69 Pneumonia due to other Gram-negative bacteria (principal); I21.A1 Myocardial infarction type 2; J96.01 Acute respiratory failure with hypoxia; E44.0 Moderate protein-calorie malnutrition; J44.0 Chronic obstructive pulmonary disease with (acute) lower respiratory infection; F01.54 Vascular dementia, unspecified severity, with anxiety; E87.0 Hyperosmolality and hypernatremia; J98.11 Atelectasis; K92.0 Hematemesis; Y95 Nosocomial condition; I10 Essential (primary) hypertension; F20.9 Schizophrenia, unspecified; Z79.01 Long term (current) use of anticoagulants; Z79.82 Long term (current) use of aspirin; Z79.899 Other long term (current) drug therapy; Z79.51 Long term (current) use of inhaled steroids; R73.9 Hyperglycemia, unspecified; E88.09 Other disorders of plasma-protein metabolism, not elsewhere classified; F09 Unspecified mental disorder due to known physiological condition; E83.42 Hypomagnesemia; E87.6 Hypokalemia; I48.91 Unspecified atrial fibrillation; M89.8X9 Other specified disorders of bone, unspecified site; R13.10 Dysphagia, unspecified; E78.5 Hyperlipidemia, unspecified; D64.9 Anemia, unspecified; E80.6 Other disorders of bilirubin metabolism
CPT/HCPCS: 31720; 36415; 36600; 70450-TC; 71045-TC; 74018; 74230-TC; 80048-TC; 80076-TC; 80202-TC; 81001; 82533; 82550-TC; 82570-TC; 82803-TC; 82962-TC; 83605-TC; 83735-TC; 83935-TC; 84100-TC; 84300-TC; 84443-TC; 84478-TC; 84484-TC; 85025-TC; 85730-TC; 87040-TC; 87081-TC; 92526; 92611-TC; 93307-TC; 94002-TC; 94003-TC; 94799-TC; 97110-TC; 97112-TC; 97530-TC; 99082-TC; A4223; A6253; A9563; G0378; J0360; J0456; J1650; J1720; J1815; J2470; J2543; J2765; J3370; J3371; J3475; J3480; J3490; J7030; J7050; J7060